=== PATIENT | female | born 1995 | race Caucasian/White ===

== ENCOUNTER 2019-02-16 18:28 | Emergency (ER) | payer OTHER ==
--- NOTE | 2019-02-16 19:29 | EDPHYS ---
Physician Documentation [facility] Name: Kay Delacruz Age: 23 yrs Sex: Female : 1995 Arrival Date: 02/16/2019 Time: 18:42 Bed 15 Private MD: ED Physician Marquis Bautista HPI: 02/16 19:54 This 23 yrs old Female presents to ER via Ambulatory with complaints of 19wks snw , Vaginal Bleeding, decreased movement. 19:54 Onset: The symptoms/episode began/occurred suddenly, today. Associated signs and snw symptoms: The patient has no apparent associated signs or symptoms. Modifying factors: The patient symptoms are alleviated by nothing, the patient symptoms are aggravated by nothing. The patient has not experienced similar symptoms in the past. It is unknown whether or not the patient has recently seen a physician. out of town and OB ask pt to come to nearest hospital for eval . 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 - Social history:: Smoking status: Patient/guardian denies using tobacco. - Ebola Screening: : Patient denies travel to an Ebola-affected area in the 21 days before illness onset. ROS: 19:51 Constitutional: Negative for fever, chills, and weight loss, Eyes: Negative for injury, snw pain, redness, and discharge, ENT: Negative for injury, pain, and discharge, Neck: Negative for injury, pain, and swelling, Cardiovascular: Negative for chest pain, palpitations, and edema, Respiratory: Negative for shortness of breath, cough, wheezing, and pleuritic chest pain, Back: Negative for injury and pain, : Negative for injury, discharge, and swelling, + scant bleeding x 2 episodes today MS/Extremity: Negative for injury and deformity, Skin: Negative for injury, rash, and discoloration, Neuro: Negative for headache, weakness, numbness, tingling, and seizure. 19:51 Abdomen/GI: Positive for state, no movement. Exam: 19:51 Constitutional: This is a well developed, well nourished patient who is awake, alert, snw and in no acute distress. Head/Face: Normocephalic, atraumatic. Eyes: Pupils equal round and reactive to light, extra-ocular motions intact. Lids and lashes normal. Conjunctiva and sclera are non-icteric and not injected. Cornea within normal limits. Periorbital areas with no swelling, redness, or edema. ENT: Nares patent. No nasal discharge, no septal abnormalities noted. Tympanic membranes are normal and external auditory canals are clear. Oropharynx with no redness, swelling, or masses, exudates, or evidence of obstruction, uvula midline. Mucous membranes moist. Neck: Trachea midline, no thyromegaly or masses palpated, and no cervical lymphadenopathy. Supple, full range of motion without nuchal rigidity, or vertebral point tenderness. No Meningismus. Chest/axilla: Normal chest wall appearance and motion. Nontender with no deformity. No lesions are appreciated. Cardiovascular: Regular rate and rhythm with a normal S1 and S2. No gallops, murmurs, or rubs. Normal PMI, no JVD. No pulse deficits. Respiratory: Lungs have equal breath sounds bilaterally, clear to auscultation and percussion. No rales, rhonchi or wheezes noted. No increased work of breathing, no retractions or nasal flaring. Abdomen/GI: Soft, non-tender, with normal bowel sounds. + Gravid. No guarding or rebound. No evidence of tenderness throughout. Back: No spinal tenderness. No costovertebral tenderness. Full range of motion. Skin: Warm, dry with normal turgor. Normal color with no rashes, no lesions, and no evidence of cellulitis. MS/ Extremity: Pulses equal, no cyanosis. Neurovascular intact. Full, normal range of motion. Neuro: Awake and alert, GCS 15, oriented to person, place, time, and situation. Cranial nerves II-XII grossly intact. Motor strength 5/5 in all extremities. Sensory grossly intact. Cerebellar exam normal. Normal gait. Psych: Awake, alert, with orientation to person, place and time. Behavior, mood, and affect are within normal limits. Vital Signs: 18:46 Pulse 87; Resp 17; Temp 98.1(TE); Pulse Ox 99% on R/A; Weight 90.72 kg (R); Pain 0/10; tw2 18:47 BP 130 / 70; tw2 MDM: 18:57 Patient medically screened. snw 19:50 Data reviewed: vital signs, nurses notes. Data interpreted: Pulse oximetry: on room air snw is 99 %. Interpretation: normal. Counseling: I had a detailed discussion with the patient and/or guardian regarding: the historical points, exam findings, and any diagnostic results supporting the discharge/admit diagnosis, the presence of at least one elevated blood pressure reading (>120/80) during this emergency department visit, radiology results, the need for outpatient follow up, to return to the emergency department if symptoms worsen or persist or if there are any questions or concerns that arise at home. Special discussion: Based on the history and exam findings, there is no indication for further emergent testing or inpatient evaluation. I discussed with the patient/guardian the need to see the OB Gyne specialist for further evaluation of the symptoms. 02/16 18:51 Order name: OB Limited; Complete Time: 19:50 snw Administered Medications: No medications were administered Disposition: 02/17 06:41 Co-signature as Attending Physician, Marquis Bautista MD I agree with the assessment and kdr plan of care. Disposition: 02/16/19 19:28 Discharged to Home. Impression: related conditions, unspecified, second trimester. - Condition is Stable. - Discharge Instructions: Vaginal Bleeding During , Second Trimester, Second Trimester of , [id number]. - Medication Reconciliation Form, Thank You Letter, Antibiotic Education, Prescription Opioid Use form. - Follow up: Private Physician; When: 2 - 3 days; Reason: Recheck today's complaints, Continuance of care, Re-evaluation by your physician. Follow up: Emergency Department; When: As needed; Reason: Worsening of condition. Signatures: Dispatcher [employer] EDMO Marquis Bautista MD MD kdr Therrien, Shelly, SOLAR ENGINEER-C SOLAR ENGINEER-Csnw Nighat Arrieta, RN RN tw2 Noman Rojas, JEFRY RN jb4 Corrections: (The following items were deleted from the chart) 02/16 20:09 19:28 02/16/2019 19:28 Discharged to Home. Impression: related conditions, jb4 unspecified, second trimester. Condition is Stable. Forms are Medication Reconciliation Form, Thank You Letter, Antibiotic Education, Prescription Opioid Use. Follow up: Private Physician; When: 2 - 3 days; Reason: Recheck today's complaints, Continuance of care, Re-evaluation by your physician. Follow up: Emergency Department; When: As needed; Reason: Worsening of condition. snw
--- NOTE | 2019-02-16 19:29 | ER ---
Nurse's Notes [facility] Name: Kay Delacruz Age: 23 yrs Sex: Female : 1995 Arrival Date: 02/16/2019 Time: 18:42 Bed 15 Private MD: Diagnosis: related conditions, unspecified, second trimester Presentation: 02/16 18:48 Presenting complaint: Patient states: i am having bleeding dark red bleeding , and i tw2 have not felt this baby move at all ever, i called my drErlin and they told me if it happens again to come in and i did start bleeding but it was light red. Transition of care: patient was not received from another setting of care. Onset of symptoms was February 16, 2019. Risk Assessment: Do you want to hurt yourself or someone else? Patient reports no desire to harm self or others. Initial Sepsis Screen: Does the patient meet any 2 criteria? No. Patient's initial sepsis screen is negative. Does the patient have a suspected source of infection? No. Patient's initial sepsis screen is negative. Care prior to arrival: None. 18:48 Method Of Arrival: Ambulatory tw2 18:48 Acuity: ETIENNE 3 tw2 Triage Assessment: 18:51 General: Appears in no apparent distress. Behavior is calm, cooperative, appropriate tw2 for age. Pain: Denies pain. : Reports vaginal bleeding that is brown, light flow, brown red the first time, then the second time it was pink. 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 - Social history:: Smoking status: Patient/guardian denies using tobacco. - Ebola Screening: : Patient denies travel to an Ebola-affected area in the 21 days before illness onset. Screenin:50 Abuse screen: Denies threats or abuse. Nutritional screening: No deficits noted. jb4 Tuberculosis screening: No symptoms or risk factors identified. Fall Risk None identified. Assessment: 19:50 General: Appears in no apparent distress. comfortable, Behavior is calm, cooperative, jb4 appropriate for age. Pain: Denies pain. Neuro: Level of Consciousness is awake, alert, obeys commands, Oriented to person, place, time, situation. Cardiovascular: Patient's skin is warm and dry. Respiratory: Airway is patent Respiratory effort is even, unlabored, Respiratory pattern is regular, symmetrical. GI: No signs and/or symptoms were reported involving the gastrointestinal system. : Reports vaginal bleeding that is brown. EENT: No signs and/or symptoms were reported regarding the EENT system. Derm: Skin is intact, Skin is pink, warm \\T\\ dry. Musculoskeletal: Circulation, motion, and sensation intact. Vital Signs: 18:46 Pulse 87; Resp 17; Temp 98.1(TE); Pulse Ox 99% on R/A; Weight 90.72 kg (R); Pain 0/10; tw2 18:47 BP 130 / 70; tw2 ED Course: 18:42 Patient arrived in ED. mr 18:48 [facility] Hayes [facility]-C [facility] snw 18:48 Marquis Bautista MD is Attending Physician. snw 18:51 Triage completed. tw2 18:51 Arm band placed on. tw2 19:15 US OB Limited In Process Unspecified. EDMS 19:50 Patient has correct armband on for positive identification. Bed in low position. Call jb4 light in reach. Side rails up X 1. 20:07 Noman Rojas, RN is Primary Nurse. jb4 20:09 No provider procedures requiring assistance completed. Patient did not have IV access jb4 during this emergency room visit. Administered Medications: No medications were administered Outcome: 19:28 Discharge ordered by . snw 20:09 Discharged to home ambulatory, with family. jb4 20:09 Condition: stable 20:09 Discharge instructions given to patient, family, Instructed on discharge instructions, follow up and referral plans. Demonstrated understanding of instructions, follow-up care. 20:09 Patient left the ED. jb4 Signatures: Dispatcher [employer] EDPR Delisa Hayes FNP-C FNP-Robinson Vicky Mejias Nighat Arrieta, RN RN tw2 Noman Rojas, RN RN jb4
--- NOTE | 2019-02-16 19:39 | RAD REPORT ---
EXAM DESCRIPTION: US - OB Limited - 02/16/2019 7:13 pm CLINICAL HISTORY: , vaginal bleeding COMPARISON: None. FINDINGS: Limited OB sonography was performed. Single intrauterine gestation is identified. Heart ra te is 151 BPM. No gross anatomic abnormality seen. measurements were not obtained. Amniotic flu id volume is normal. Anterior placenta shows no abruption or marginal hematoma. Internal os of the cervical canal appears closed. Cervical canal detail is limited but appears to be normal. Canal length of the cervix is 3.7 cm. IMPRESSION: No cervix/ cervical canal abnormality identified. Single intrauterine gestation shows heart rate of 151 BPM. Anterior placenta shows no suspicious finding.
== END 2019-02-16 20:09 | disposition home or self-care (01) ==
LOC: ER 18:28
DX: O20.9 Hemorrhage in early pregnancy, unspecified (principal); Z3A.19 19 weeks gestation of pregnancy
CPT/HCPCS: 76815; 99283